=== PATIENT | female | born 1955 | race Caucasian/White ===

== ENCOUNTER → 2018-04-24 | Outpatient (CLI) | payer OTHER ==
[~2018-04-24] MED LIST: DICY20 PO; HYDACE5 PO; ONDA8 PO
[2018-04-24 10:27] LABS: BASOPHILS ABSOLUTE AUTO 0.07 K/mm3 (0.00-0.23); BASOPHILS PERCENT AUTO 1 % (0-2); EOSINOPHILS ABSOLUTE AUTO 0.07 K/mm3 (0.00-0.68); EOSINOPHILS PERCENT AUTO 1 % (0-6); Hematocrit 44.8 % (33.0-51.0); IMMATURE GRAN ABSOLUTE AUTO 0.01 K/mm3 (0.00-0.10); IMMATURE GRAN PERCENT AUTO 0 % (0-1); LYMPHOCYTES ABSOLUTE AUTO 1.01 K/mm3 (0.84-5.20); LYMPHOCYTES PERCENT AUTO 16 % (21-46); MONOCYTES ABSOLUTE AUTO 0.41 K/mm3 (0.16-1.47); MONOCYTES PERCENT AUTO 7 % (4-13); Mean Corpuscular HGB 31.8 pg (26.0-34.0); Mean Corpuscular HGB Conc 33.5 g/dL (31.5-36.5); Mean Corpuscular Volume 95 fL (80-100); Mean Platelet Volume 10.5 fL (9.1-12.4); NEUTROPHILS ABSOLUTE AUTO 4.76 K/mm3 (1.96-9.15); NEUTROPHILS PERCENT AUTO 75 % (41-73); Platelet Count 265 K/mm3 (150-400); RDW Coefficient Variation 13.8 % (11.7-14.2); RDW Standard Deviation 48.8 fL (35.1-46.3); Red Blood Cell Count 4.72 M/mm3 (3.80-5.20); White Blood Cell Count 6.33 K/mm3 (4.00-11.30)
[2018-04-24 11:07] LABS: Alanine Aminotransfer (ALT/SGP 62 U/L (12-78); Albumin, Blood 4.1 g/dL (3.4-5.0); Albumin/Globulin Ratio 1.3 (0.8-1.8); Alk Phos 370 U/L (50-136); Anion Gap 8 mmol/L (6-16); Aspartate Aminotrans (AST/SGOT 40 U/L (12-37); Bilirubin, Total 0.9 mg/dL (0.1-1.0); Blood Urea Nitrogen 14 mg/dL (8-24); Bun/Creatinine Ratio 18.6 (12.0-20.0); CO2, Blood 26 mmol/L (21-32); Calcium, Blood 10.3 mg/dL (8.5-10.1); Chloride, Blood 106 mmol/L (98-108); Creatinine, Blood 0.75 mg/dL (0.40-1.00); Globulin, Blood 3.2 g/dL (2.2-4.0); Glomerular Filtration Rate >60 (60-); Glucose, Blood 97 mg/dL (70-99); Potassium, Blood 4.2 mmol/L (3.5-5.5); Sodium, Blood 140 mmol/L (136-145); Total Protein, Blood 7.3 g/dL (6.4-8.2)
[2018-04-24 20:29] LABS: Alpha Feto Protein, Tumor Mkr 4.1 ng/mL (0.0-8.0)
[2018-04-24 20:51] LABS: Cancer Antigen 19-9 >100000.0 U/mL (2.0-37.0)
== END | disposition home or self-care (01) ==
LOC: LAB SHORT 09:45 → LAB 09:45
PROVIDERS: Physician Assistant
DX: R10.9 Unspecified abdominal pain (principal); R53.83 Other fatigue
CPT/HCPCS: 80053; 82105; 83690; 84443; 85025; 86301

== ENCOUNTER 2018-12-13 08:35 | Inpatient (IN) | payer OTHER ==
[~2018-12-13] VITALS: Ht 165.1 cm; Wt 59.0 kg
[~2018-12-13 08:35] MED LIST changes: +Omeprazole20 M1 PO; +PROBIOTIC1 EAC3 PO; +ROLAIDS PO
[2018-12-13] MEDS ORDERED: Micro-K10 MEQ PO (09:06)
[2018-12-13] MEDS ORDERED: CREON DR 24,001 EACH PO (09:06)
[2018-12-13 09:09] LABS: BASOPHILS ABSOLUTE AUTO 0.14 K/mm3 (0.00-0.23); BASOPHILS PERCENT AUTO 0 % (0-2); EOSINOPHILS ABSOLUTE AUTO 0.01 K/mm3 (0.00-0.68); EOSINOPHILS PERCENT AUTO 0 % (0-6); Hematocrit 27.2 % (33.0-51.0); Hemoglobin 9.3 g/dL (11.5-16.0); IMMATURE GRAN ABSOLUTE AUTO 1.77 K/mm3 (0.00-0.10); IMMATURE GRAN PERCENT AUTO 4 % (0-1); LYMPHOCYTES ABSOLUTE AUTO 0.63 K/mm3 (0.84-5.20); LYMPHOCYTES PERCENT AUTO 1 % (21-46); MONOCYTES ABSOLUTE AUTO 1.33 K/mm3 (0.16-1.47); MONOCYTES PERCENT AUTO 3 % (4-13); Mean Corpuscular HGB 34.6 pg (26.0-34.0); Mean Corpuscular HGB Conc 34.2 g/dL (31.5-36.5); Mean Corpuscular Volume 101 fL (80-100); Mean Platelet Volume 10.6 fL (9.1-12.4); NEUTROPHILS ABSOLUTE AUTO 42.05 K/mm3 (1.96-9.15); NEUTROPHILS PERCENT AUTO 92 % (41-73); Platelet Count 135 K/mm3 (150-400); RDW Coefficient Variation 19.3 % (11.7-14.2); RDW Standard Deviation 63.8 fL (35.1-46.3); Red Blood Cell Count 2.69 M/mm3 (3.80-5.20); White Blood Cell Count 45.93 K/mm3 (4.00-11.30)
[2018-12-13 09:28] LABS: Alanine Aminotransfer (ALT/SGP 66 U/L (12-78); Albumin, Blood 1.4 g/dL (3.4-5.0); Albumin/Globulin Ratio 0.5 (0.8-1.8); Alk Phos 678 U/L (50-136); Anion Gap 8 mmol/L (6-16); Aspartate Aminotrans (AST/SGOT 103 U/L (12-37); Bilirubin, Total 0.6 mg/dL (0.1-1.0); Blood Urea Nitrogen 61 mg/dL (8-24); Bun/Creatinine Ratio 63.5 (12.0-20.0); CO2, Blood 21 mmol/L (21-32); Calcium, Blood 6.9 mg/dL (8.5-10.1); Chloride, Blood 111 mmol/L (98-108); Creatinine, Blood 0.96 mg/dL (0.40-1.00); Globulin, Blood 2.6 g/dL (2.2-4.0); Glomerular Filtration Rate >60 (60-); Glucose, Blood 126 mg/dL (70-99); Magnesium, Blood 2.3 mg/dL (1.6-2.4); Potassium, Blood 4.3 mmol/L (3.5-5.5); Sodium, Blood 140 mmol/L (136-145)
[2018-12-13 09:47] LABS: Source, Urine Catheter
[2018-12-13 09:51] LABS: Bilirubin, Urine Neg (Neg); Blood, Urine Neg (Neg); Glucose Qualitative, Urine 1+ (Neg); Ketones, Urine Neg (Neg); Leukocyte Esterase, Urine Neg (Neg); Nitrite, Urine Neg (Neg); Protein, Urine 1+ (Neg); Specific Gravity, Urine 1.015 (1.003-1.022); Urobilinogen, Urine NORM (Normal)
[2018-12-13 10:17] LABS: Appearance, Urine Clear (Clear); Color, Urine Yellow (P-Yellow)
--- NOTE | 2018-12-13 19:07 | NUR ---
REPORT GIVEN TO AMMON KERR
--- NOTE | 2018-12-14 07:20 | NUR ---
ASSUMED CARE: PT RESTING QUIETLY IN BED AT THIS TIME. VSS, LR RUNNING AT 150/HR. DENIES DISCOMFORT OR FURTHER NEEDS AT THIS TIME
--- NOTE | 2018-12-14 07:22 | NUR ---
[id number]: ALERT, ORIENTED, DENIES PAIN X WITH REPOSIT OR LYING DIRECTLY ON SACRUM. BEDPAN USED, 750CC DK BROOKE URINE, NO BM, PASSING FLATUS. VISITING, THEN HOME. PT REPOSIT SIDE TO SIDE, SUPINE ONLY TRANSIENTLY. 2300: SBP 80-90, MAP > 60 REPORTED TO Rick WATSON, NO CHANGES MADE. POSITIVE BLOOD CULTURE REPORTED SHORTLY AFTER, STATED CORRECT ANTIBIOTICS ORDERED. PT SLEEPING AT INTERVALS. ATTEMPT TO URINATE ON BEDPAN IN AM UNSUCCESSFUL.
--- NOTE | 2018-12-14 07:30 | NUR ---
ADDENDUM: DAUGHTER MEMO AT BEDSIDE [id number], DISCUSSED PLAN FOR NO WT. BEARING SACRUM, ELEVATING BLE, NUTRITION.
[2018-12-14 08:30] LABS: Hematocrit 34.1 % (33.0-51.0); Hemoglobin 11.5 g/dL (11.5-16.0); Mean Corpuscular HGB 34.2 pg (26.0-34.0); Mean Corpuscular HGB Conc 33.7 g/dL (31.5-36.5); Mean Corpuscular Volume 102 fL (80-100); Mean Platelet Volume 11.5 fL (9.1-12.4); Platelet Count 94 K/mm3 (150-400); RDW Coefficient Variation 19.9 % (11.7-14.2); RDW Standard Deviation 67.8 fL (35.1-46.3); Red Blood Cell Count 3.36 M/mm3 (3.80-5.20)
[2018-12-14 08:49] LABS: Anion Gap 11 mmol/L (6-16); Blood Urea Nitrogen 60 mg/dL (8-24); Bun/Creatinine Ratio 64.7 (12.0-20.0); CO2, Blood 20 mmol/L (21-32); Calcium, Blood 6.8 mg/dL (8.5-10.1); Chloride, Blood 111 mmol/L (98-108); Creatinine, Blood 0.93 mg/dL (0.40-1.00); Glomerular Filtration Rate >60 (60-); Glucose, Blood 30 mg/dL (70-99); Potassium, Blood 4.6 mmol/L (3.5-5.5); Sodium, Blood 142 mmol/L (136-145)
[2018-12-14 08:57] LABS: White Blood Cell Count 50.06 K/mm3 (4.00-11.30)
--- NOTE | 2018-12-14 09:04 | NUR ---
ALERTED OF CRITICAL VALUES. DISCUSSED WITH DR LUX AND FAST FOOD CREW LEAD. RECHECKED CBG AFTER BREAKFAST AND IS IN THE 60S. PROVIDED ORANGE JUICE AND NEW ORDERS FOR CBGS PER PROTOCOL. CONTRACT MANAGEMENT SPECIALIST IN ROOM AT THIS TIME
[2018-12-14 09:06] LABS: BAND PERCENT MAN 9 % (0-8); BASOPHILS PERCENT MAN 0 % (0-2); EOSINOPHILS PERCENT MAN 0 % (0-6); LYMPHOCYTES PERCENT MAN 2 % (21-46); MONOCYTES PERCENT MAN 3 % (4-13); NEUTROPHILS ABSOLUTE MAN 47.55 K/mm3 (1.96-9.15); SEG NEUTROPHILS PERCENT MAN 86 % (41-73); TOTAL CELLS COUNTED 100
--- NOTE | 2018-12-14 09:26 | NUR ---
Echocardiogram completed.
--- NOTE | 2018-12-14 10:41 | NUR ---
DR ELIZABETH SPOKE TO PT ABOUT HER ECHO RESULT. PT DECLINED MARIAH. DR ELIZABETH STATES HE WILL SPEAK WITH DR LUX AND MAKE FURTHER RECOMMENDATIONS. VISUALIZED PT'S FEET AND PICTURES OF WOUNDS.
--- NOTE | 2018-12-14 11:26 | NUR ---
DISCUSSED PT'S CASE WITH PROFILE STITCHING MACHINE OPERATOR AND DETERMINED PCU WOULD BE THE MORE APPROPRIATE OPTION FOR PT. RELAYED DR ELIZABETH'S SUGGESTION FOR A VENOUS DOPPLER. DIETARY ATTEMPTING TO SPEAK WITH PT AT THIS TIME.
--- NOTE | 2018-12-14 14:38 | NUR ---
PT REQUESTED TO USE BEDPAN BUT DID NOT URINATE. HAS NOT URINATED SINCE THIS AM. BLADDER SCAN DONE AND REVEALED MORE THAN [address] LUX. SEE NEW ORDERS. REPORT GIVEN TO AMMON TRIPATHI.
--- NOTE | 2018-12-14 16:45 | NUR ---
MARIAH 1540 HURICANE SPRAY GIVEN 1550 PT CONSENTED 1551 TIME OUT 1553 1 MG VERSED 25 MCG FENTYAL GIVEN 1555 1ST ATTAMPT WITH THE PROBE 1557 2ND ATTEMPT WITH THE PROBE 1600 PROBE OUT NO SIGN OF VEGITATION 1608 NARCAN GIVEN 1609 RAMIZICON GIVEN 1610 PT AWAKE
--- NOTE | 2018-12-14 18:56 | NUR ---
END OF SHIFT PT HANDLED MARIAH WELL, PT HAS NO SIGNS OF BLEEDING, VSS, PT HAD A BLADDER SCAN THAT WAS GREATTER THAN 1000,RECIEVED ORDER FOR THOMPSON,
--- NOTE | 2018-12-14 19:23 | NUR ---
Patient gave Yoni Pritchard permission to participate in care on 12/14/2018.
--- NOTE | 2018-12-14 20:00 | NUR ---
ASSUMED CARE OF PT AT 1900. REPORT RECEIVED. PT PRESENTS IN BED BED. SLEEPING AT THIS TIME. PT IN NO APPARENT DISTRESS AT THIS TIME. WILL ALLOW PT TO REST SOME MORE BEFORE ASSESSMENT. VSS. WILL REVIEW CHART AND PLAN OF CARE FOR THIS PT.
--- NOTE | 2018-12-15 | NUR ---
PT RESTING IN BED. USING PILLOWS PLACED PT IN A BRIDGE TYPE POSITION TO KEEP WEIGHT OFF SACRUM. PT COOPERATIVE AND ACCEPTING OF CARE. NO COMPLAINTS OF PAIN AT THIS TIME. WILL CONTINUE TO MONITOR PT.
[2018-12-15 04:33] LABS: Hematocrit 31.6 % (33.0-51.0); Hemoglobin 10.8 g/dL (11.5-16.0); Mean Corpuscular HGB 34.1 pg (26.0-34.0); Mean Corpuscular HGB Conc 34.2 g/dL (31.5-36.5); Mean Corpuscular Volume 100 fL (80-100); Mean Platelet Volume 11.7 fL (9.1-12.4); Platelet Count 61 K/mm3 (150-400); RDW Coefficient Variation 19.7 % (11.7-14.2); RDW Standard Deviation 65.2 fL (35.1-46.3); Red Blood Cell Count 3.17 M/mm3 (3.80-5.20); White Blood Cell Count 38.12 K/mm3 (4.00-11.30)
[2018-12-15 04:50] LABS: Anion Gap 9 mmol/L (6-16); Blood Urea Nitrogen 60 mg/dL (8-24); Bun/Creatinine Ratio 61.6 (12.0-20.0); CO2, Blood 20 mmol/L (21-32); Calcium, Blood 6.6 mg/dL (8.5-10.1); Chloride, Blood 111 mmol/L (98-108); Creatinine, Blood 0.97 mg/dL (0.40-1.00); Glomerular Filtration Rate >60 (60-); Glucose, Blood 78 mg/dL (70-99); Potassium, Blood 4.4 mmol/L (3.5-5.5); Sodium, Blood 140 mmol/L (136-145)
[2018-12-15 04:57] LABS: BAND PERCENT MAN 5 % (0-8); BASOPHILS PERCENT MAN 0 % (0-2); EOSINOPHILS PERCENT MAN 0 % (0-6); LYMPHOCYTES ABSOLUTE MAN 0.38 K/mm3 (0.84-5.20); LYMPHOCYTES PERCENT MAN 1 % (21-46); MONOCYTES ABSOLUTE MAN 1.14 K/mm3 (0.16-1.47); MONOCYTES PERCENT MAN 3 % (4-13); NEUTROPHILS ABSOLUTE MAN 36.59 K/mm3 (1.96-9.15); SEG NEUTROPHILS PERCENT MAN 91 % (41-73); TOTAL CELLS COUNTED 100
--- NOTE | 2018-12-15 06:00 | NUR ---
PT REMAINS ALERT AND ORIENTED. DENIES PAIN THROUGHOUT THE NIGHT. ASSISTED PT WITH TURNS WITH KEEPING PRESSURE OFF HER SPINE AND COCCYX. PT TOLERATES TURNS WELL. IS ABLE TO ASK FOR POSITION CHANGES WHEN UNCOMFORTABLE. NO S/S ADVERSE REACTIONS TO ANTIBIOTIC THERAPY TO NOTE. LABS DRAWN FROM [facility] THIS AM WITHOUT ISSUES. WILL CONTINUE TO MONITOR PT, AND WILL REPORT OFF TO ONCOMING RN.
--- NOTE | 2018-12-15 07:30 | NUR ---
ASSUMED CARE OF PATIENT; SEE ASSESSMENT CHARTING FOR DETAILED ASSESSMENT. PATIENT SLEEPING BUT ROUSES TO SOFT, VERBAL STIMULI. DENIES DISCOMFORT; A/O X 4; MAEW; GENERALIZED WEAKNESS. CACHECTIC AND EMACIATED; DENIES GI UPSET AT PRESENT. STATES SHE LIKES FOOD BUT NOTHING TASTES GOOD. IVF OF D5 1/2NS AT 125ML/HR. THOMPSON TO GRAVITY; FAIR AMOUNT OF MED. YELLOW URINE. FEET WITH POOR CIRCULATION; DOPPLER NEEDED TO OBTAIN CERTAIN PULSES IN FEET. DRESSINGS TO COCCYX, ETC; SEE CHART PHOTOS. OVERALL STATUS SL. IMPROVED.
--- NOTE | 2018-12-15 09:50 | NUR ---
ISTRATE HERE; ORDERED SCD'S AND DC'D LOVENOX D/T PLATELETS DOWN TO 61.
--- NOTE | 2018-12-15 13:00 | NUR ---
LOTS OF VISITORS THIS AFTERNOON; REDUCED APPETITE; ATE <5% OF LUNCH; NO GI UPSET BUT POOR APPETITE AND FOOD TASTES BAD.
--- NOTE | 2018-12-15 14:37 | NUR ---
PATIENT TO TRANSFER TO PCU 2; T/C TO AMMON CASTILLO; SHE WILL CALL BACK FOR REPORT. PATIENTS' SPOUSE AT BEDSIDE.
--- NOTE | 2018-12-15 14:45 | NUR ---
REPORT TO AMMON CASTILLO.
--- NOTE | 2018-12-15 14:55 | NUR ---
TRANSFERRED TO PCU, ROOM 2, VIA BED; ACCOMPANIED BY SOFTWARE PACKAGING ENGINEER'S ADRIAN AND NOVA. MEDS, IVF'S, PERSONAL BELONGINGS, CHART WITH PATIENT; NO ACUTE C/O.
--- NOTE | 2018-12-15 18:03 | NUR ---
END OF SHIFT; PT ARRIVED TO PCU FROM ICU LATE THIS AFTERNOON. SHE IS AO X 4. PT HAS CACHETNIC APPEARANCE. OBVIOUS BRUISES AND SCABBING NOTED ON BLE. PICTURES OF FEET ARE IN CHART. TOES ARE BLACK AND SCABBING NOTED. REDNESS TO TOP OF FEET AND BOTTOM OF TOES. D5 1/2 NS AT 75ML/HR INFUSING. PT HAS DECREASED APPETITE AND REFUSES MOST OF DINNER. SHE STATES FOOD DOES NOT HAVE ANY TASTE SINCE HER CHEMO. THOMPSON CATH TO DOWN DRAIN. WILL CONTINUE TO MONITOR THIS PATIENT UNTIL REPORT AND HAND OFF TO NOC SHIFT RN.
--- NOTE | 2018-12-15 22:00 | NUR ---
ASSUMED CARE OF PATIENT AT APPROXIMATELY 1905 FROM JONATHAN Dewey RN. PATIENT ALERT AND ORIENTED X4; WEAK; CACHECTIC. PATIENT WAKES TO VERBAL STIMULUS; SLEEPS BETWEEN CARE ROUNDING AND Q2H TURNING. PATIENT DENIES PAIN, NUMBNESS, TINGLING, DIZZINESS AND NAUSEA. BILATERAL FEET DISCOLORATION; RIGHT WORSE; +3-4 EDEMA IN BLE. PATIENT INCONTINENT OF SMEAR STOOL FOR EACH TURNING; MEPILEX TO COCCYX FOR PRESSURE ULCER CHANGED TONIGHT. IVF INFUSING PER ORDER. URINARY CATHETER DRAINING YELLOW URINE. 2100 CIPRO IV DOSE HELD; SCHEDULED FOR Q12; GIVEN SHORTLY AFTER 1700; DISCUSSED WITH PHARMACIST. PATIENT CURRENTLY SLEEPING IN BED; CALL LIGHT IN REACH; BED IN LOWEST POSISTION; BED ALARM ON; WILL CONTIUE TO MONITOR AND ASSESS UNTIL END OF SHIFT.
[2018-12-16 04:13] LABS: BASOPHILS ABSOLUTE AUTO 0.05 K/mm3 (0.00-0.23); BASOPHILS PERCENT AUTO 0 % (0-2); EOSINOPHILS PERCENT AUTO 0 % (0-6); Hematocrit 32.6 % (33.0-51.0); Hemoglobin 10.9 g/dL (11.5-16.0); IMMATURE GRAN PERCENT AUTO 2 % (0-1); LYMPHOCYTES ABSOLUTE AUTO 1.15 K/mm3 (0.84-5.20); LYMPHOCYTES PERCENT AUTO 5 % (21-46); MONOCYTES ABSOLUTE AUTO 0.78 K/mm3 (0.16-1.47); MONOCYTES PERCENT AUTO 3 % (4-13); Mean Corpuscular HGB 33.2 pg (26.0-34.0); Mean Corpuscular HGB Conc 33.4 g/dL (31.5-36.5); Mean Corpuscular Volume 99 fL (80-100); NEUTROPHILS ABSOLUTE AUTO 21.05 K/mm3 (1.96-9.15); NEUTROPHILS PERCENT AUTO 90 % (41-73); RDW Coefficient Variation 19.9 % (11.7-14.2); RDW Standard Deviation 66.7 fL (35.1-46.3); Red Blood Cell Count 3.28 M/mm3 (3.80-5.20); White Blood Cell Count 23.43 K/mm3 (4.00-11.30)
[2018-12-16 04:33] LABS: Albumin, Blood 1.2 g/dL (3.4-5.0); Anion Gap 9 mmol/L (6-16); Blood Urea Nitrogen 57 mg/dL (8-24); Bun/Creatinine Ratio 67.5 (12.0-20.0); CO2, Blood 19 mmol/L (21-32); Chloride, Blood 110 mmol/L (98-108); Creatinine, Blood 0.85 mg/dL (0.40-1.00); Glomerular Filtration Rate >60 (60-); Glucose, Blood 86 mg/dL (70-99); Phosphorus, Blood 3.2 mg/dL (2.5-4.9); Potassium, Blood 4.3 mmol/L (3.5-5.5); Sodium, Blood 138 mmol/L (136-145)
[2018-12-16 04:46] LABS: Mean Platelet Volume 13.4 fL (9.1-12.4); Platelet Count 41 K/mm3 (150-400)
[2018-12-16 05:00] LABS: Calcium, Blood 5.6 mg/dL (8.5-10.1)
--- NOTE | 2018-12-16 06:41 | NUR ---
SPOKE WITH DR. SMALLWOOD IN ICU REGARDING CRITICALLY LOW PLATELET COUNT AND CRITICALLY LOW CALCIUM; ORDERS RECIEVED. PATIENT UNCOMFORTABLE; REPOSISTIONED FREQUENTLY. VSS. WILL CONTINUE TO MONITOR AND ASSESS UNTIL END OF SHIFT.
--- NOTE | 2018-12-16 07:40 | NUR ---
PCU DAYSHIFT ASSUMED CARE OF PT APPROX. 0700. PT A&OX4. ASSESSMENT COMPLETED. VITAL SIGNS STABLE. HEART RHYTHM SINUS [place] WITH HEART RATE 46-48 AT THIS TIME. PT HAS SCATTERED BRUISING AND ABRASIONS DUE TO FRAGILE SKIN. EDEMA BLE. PILLOW PLACED UNDER FEET. THOMPSON IN PLACE, INTACT, DRAINING AND PATENT. BED IN LOW POSTION, BED ALARM ON, CALL LIGHT N REACH AND PT DENIES ANY NEEDS AT THIS TIME. WILL CONTINUE TO MONITOR.
--- NOTE | 2018-12-16 16:11 | NUR ---
NOTE SPOKE TO VICE PRESIDENT OF FINANCE ABOUT PT AND ALLERGY. PT REPORTS THIS MORNING HAVING TROUBLE FINDING ITEMS ON MENU THAT SHE IS ABLE TO EAT. PT HAS LOW APPETITE AND IN NEED OF NUTRITION. VICE PRESIDENT OF FINANCE WAS IN TO SEE PT TO DISUCSS THIS AND COME UP WITH A PLAN.
--- NOTE | 2018-12-16 19:18 | NUR ---
SHIFT SUMMARY PT PLEASANT, COOPERATIVE AND USES CALL LIGHT APPROPRIATELY. PT REMAINS A&O X4. VITAL SIGNS REMAIN STABLE. ASSESSMENT FINDINGS FROM MORNING REMAIN UNCHANGED. PILLOW REMAINS UNDER FEET TO HELP DECREASE EDEMA. PT REPORTS HAVING SLIGHTLY INCREASED APPETITE THIS EVENING AND WAS ABLE TO CONSUME SOME OF HER HOME PROTEIN SHAKE POWDER. THOMPSON REMAINS IN PLACE, PATENT AND DRAINING. FAMILY AT BEDSIDE INTERMITTENTLY. BED IN LOW POSITION, BED ALARM ON, CALL LIGHT IN REACH AND PT DENIES ANY NEEDS AT THIS TIME. WILL CONTINUE TO MONITOR UNTIL HANDOFF TO NIGHTSHIFT RN.
--- NOTE | 2018-12-16 22:23 | NUR ---
ASSUMED CARE OF PATIENT AT APPROXIMATELY 1905 FROM RUBÉN Osborn RN. PATIENT ALERT AND ORIENTED X4; WEAK; CACHECTIC. PATIENT WAKES TO VERBAL STIMULUS; SLEEPS BETWEEN CARE ROUNDING AND Q2H TURNING. PATIENT DENIES PAIN, NUMBNESS, TINGLING, DIZZINESS AND NAUSEA. PATIENT COMPLAINED OF BED BEING UNCOMFORTABLE; FOAM APPLIED TO MATTRESS. BILATERAL FEET DISCOLORATION; RIGHT WORSE; +3-4 EDEMA IN BLE. PATIENT INCONTINENT OF SMEAR TO SMALL STOOL FOR EACH TURNING; MEPILEX TO COCCYX FOR PRESSURE ULCER. IVF INFUSING PER ORDER. URINARY CATHETER DRAINING YELLOW URINE. PATIENT'S WAS BEDSIDE AT SHIFT CHANGE. PATIENT CURRENTLY SLEEPING IN BED; CALL LIGHT IN REACH; BED IN LOWEST POSISTION; BED ALARM ON; WILL CONTIUE TO MONITOR AND ASSESS UNTIL END OF SHIFT.
--- NOTE | 2018-12-16 22:26 | NUR ---
ASSUMED CARE OF PATIENT AT APPROXIMATELY 1905 FROM RUBÉN Osborn RN. PATIENT ALERT AND ORIENTED X4; WEAK; CACHECTIC. PATIENT WAKES TO VERBAL STIMULUS; SLEEPS BETWEEN CARE ROUNDING AND Q2H TURNING. PATIENT DENIES PAIN, NUMBNESS, TINGLING, DIZZINESS AND NAUSEA. PATIENT COMPLAINED OF BED BEING UNCOMFORTABLE; FOAM APPLIED TO MATTRESS. BILATERAL FEET DISCOLORATION; RIGHT WORSE; +3-4 EDEMA IN BLE. PATIENT INCONTINENT OF SMEAR TO SMALL STOOL FOR EACH TURNING; MEPILEX TO COCCYX FOR PRESSURE ULCER. IVF INFUSING PER ORDER. URINARY CATHETER DRAINING YELLOW URINE. PATIENT'S WAS BEDSIDE AT SHIFT CHANGE. PATIENT'S TELE D/C'D TODAY; OXYGEN SATURATION ABOVE 90% ON ROOM AIR. PATIENT CURRENTLY SLEEPING IN BED; CALL LIGHT IN REACH; BED IN LOWEST POSISTION; BED ALARM ON; WILL CONTIUE TO MONITOR AND ASSESS UNTIL END OF SHIFT.
[2018-12-17 04:44] LABS: BASOPHILS ABSOLUTE AUTO 0.05 K/mm3 (0.00-0.23); BASOPHILS PERCENT AUTO 0 % (0-2); EOSINOPHILS PERCENT AUTO 0 % (0-6); Hematocrit 29.8 % (33.0-51.0); Hemoglobin 10.1 g/dL (11.5-16.0); IMMATURE GRAN ABSOLUTE AUTO 0.19 K/mm3 (0.00-0.10); IMMATURE GRAN PERCENT AUTO 1 % (0-1); LYMPHOCYTES PERCENT AUTO 7 % (21-46); MONOCYTES PERCENT AUTO 5 % (4-13); Mean Corpuscular HGB 33.4 pg (26.0-34.0); Mean Corpuscular HGB Conc 33.9 g/dL (31.5-36.5); Mean Corpuscular Volume 99 fL (80-100); NEUTROPHILS ABSOLUTE AUTO 14.83 K/mm3 (1.96-9.15); NEUTROPHILS PERCENT AUTO 87 % (41-73); RDW Coefficient Variation 19.7 % (11.7-14.2); RDW Standard Deviation 64.8 fL (35.1-46.3); Red Blood Cell Count 3.02 M/mm3 (3.80-5.20); White Blood Cell Count 16.97 K/mm3 (4.00-11.30)
[2018-12-17 04:52] LABS: Alanine Aminotransfer (ALT/SGP 51 U/L (12-78); Albumin, Blood 1.8 g/dL (3.4-5.0); Albumin/Globulin Ratio 0.8 (0.8-1.8); Alk Phos 630 U/L (50-136); Anion Gap 8 mmol/L (6-16); Aspartate Aminotrans (AST/SGOT 36 U/L (12-37); Bilirubin, Total 0.9 mg/dL (0.1-1.0); Blood Urea Nitrogen 52 mg/dL (8-24); Bun/Creatinine Ratio 61.3 (12.0-20.0); CO2, Blood 21 mmol/L (21-32); Calcium, Blood 6.8 mg/dL (8.5-10.1); Chloride, Blood 110 mmol/L (98-108); Creatinine, Blood 0.85 mg/dL (0.40-1.00); Globulin, Blood 2.4 g/dL (2.2-4.0); Glomerular Filtration Rate >60 (60-); Glucose, Blood 101 mg/dL (70-99); Sodium, Blood 139 mmol/L (136-145); Total Protein, Blood 4.2 g/dL (6.4-8.2)
[2018-12-17 05:17] LABS: Mean Platelet Volume 13.3 fL (9.1-12.4); Platelet Count 30 K/mm3 (150-400)
--- NOTE | 2018-12-17 06:37 | NUR ---
NO ACUTE CHANGES TO REPORT. PATIENT SLEPT ABOUT ELEVEN HOURS LAST NIGHT. REPORTS FOAM APPLIED TO MATTRESS MORE COMFORTABLE. VSS. WILL CONTINUE TO MONITOR AND ASSESS UNTIL END OF SHIFT.
--- NOTE | 2018-12-17 12:40 | NUR ---
BEGINNING OF SHIFT - TRANSFER TO MEDICAL FLOOR Assumed care of pt at 0700. Bedside report recieved from Josiane VERDE. Pt on room air. No tele in place. Pt cachexic in appearance. Pt did not eat breakfast but this RN made a protein shake that she drinks at home. Pt bedrest. Orders placed for medical floor status. Pt transferred to room 324 at 1213. Belongings, chart, and medications transferred to patient. Telephone report given to Pedrito VERDE prior to pt arrival.
--- NOTE | 2018-12-17 16:06 | NUR ---
PT ARRIVED TO THE MEDICAL FLOOR FROM THE PCU AROUND 1300, A/OX3, PT WAS ORIENTED TO THE ROOM LAYOUT AND CALL SYSTEM, REPORT WAS TAKEN FROM EDISON VERDE FROM THE PCU, CALL LIGHT IN REACH
--- NOTE | 2018-12-17 20:03 | NUR ---
PT A/OX3, PLEASANT AND COOPERATIVE THE PT IS BED REST TURN Q2 HRS, THE PT APPEARS TO BE BREATHING EASILY ON RA AT THIS TIME, THE PT HAS LITTLE APPETITE ONLY HAD A SMALL PERCENT OF HER DINNER, PT DENIED ANY PAIN AT THIS TIME, CALL LIGHT IN REACH
--- NOTE | 2018-12-18 04:45 | NUR ---
SUMMARY: A/OX3, PLEASANT AND COOPERATIVE W/CARE. SHE REMAINS ON BEDREST W/TURN SCHEDULE MAINTAINED. SHE APPEARS CACHETIC R/T PANCREATIC CANCER AND HAS SCANT APPETITE. SIGNIFICANT DEPENDENT EDEMA IN HIPS AND ABDO NOTED TO EXTEND GROSSLY INTO FEET. SHE APPEARS PALE AND FACE HAS DUSKY APPEARANCE. THOMPSON IS PATENT AND DRAINING. MEPILEX REMAINS C/D/I TO PRESSURE ULCER ON COCCYX AND VARIOUS SCABS AND SCRAPES NOTED TO BUE'S. BILAT FEET HAVE DISCOLORATION, ARE COOL AND HAVE SLOW CAP REFILL. TOES TO L.FOOT ARE PURPLE BUT (-) FOR DVT. ONCOLOGY AND ID CONSULTING. NO ACUTE CHANGES, VSS/AFEBRILE. WILL MONITOR AND REPORT TO DAY RN.
[2018-12-18 05:05] LABS: BASOPHILS ABSOLUTE AUTO 0.02 K/mm3 (0.00-0.23); BASOPHILS PERCENT AUTO 0 % (0-2); EOSINOPHILS PERCENT AUTO 0 % (0-6); Hematocrit 28.9 % (33.0-51.0); Hemoglobin 9.7 g/dL (11.5-16.0); IMMATURE GRAN ABSOLUTE AUTO 0.15 K/mm3 (0.00-0.10); IMMATURE GRAN PERCENT AUTO 2 % (0-1); LYMPHOCYTES ABSOLUTE AUTO 0.83 K/mm3 (0.84-5.20); LYMPHOCYTES PERCENT AUTO 9 % (21-46); MONOCYTES ABSOLUTE AUTO 0.49 K/mm3 (0.16-1.47); MONOCYTES PERCENT AUTO 5 % (4-13); Mean Corpuscular HGB 33.6 pg (26.0-34.0); Mean Corpuscular HGB Conc 33.6 g/dL (31.5-36.5); Mean Corpuscular Volume 100 fL (80-100); NEUTROPHILS ABSOLUTE AUTO 7.59 K/mm3 (1.96-9.15); NEUTROPHILS PERCENT AUTO 84 % (41-73); RDW Coefficient Variation 19.2 % (11.7-14.2); RDW Standard Deviation 65.9 fL (35.1-46.3); Red Blood Cell Count 2.89 M/mm3 (3.80-5.20); White Blood Cell Count 9.08 K/mm3 (4.00-11.30)
[2018-12-18 05:21] LABS: Alanine Aminotransfer (ALT/SGP 39 U/L (12-78); Albumin, Blood 2.7 g/dL (3.4-5.0); Albumin/Globulin Ratio 1.4 (0.8-1.8); Alk Phos 553 U/L (50-136); Anion Gap 8 mmol/L (6-16); Aspartate Aminotrans (AST/SGOT 27 U/L (12-37); Blood Urea Nitrogen 47 mg/dL (8-24); Bun/Creatinine Ratio 58.2 (12.0-20.0); CO2, Blood 22 mmol/L (21-32); Calcium, Blood 6.9 mg/dL (8.5-10.1); Chloride, Blood 108 mmol/L (98-108); Creatinine, Blood 0.81 mg/dL (0.40-1.00); Globulin, Blood 1.9 g/dL (2.2-4.0); Glomerular Filtration Rate >60 (60-); Glucose, Blood 93 mg/dL (70-99); Magnesium, Blood 2.1 mg/dL (1.6-2.4); Potassium, Blood 3.6 mmol/L (3.5-5.5); Sodium, Blood 138 mmol/L (136-145); Total Protein, Blood 4.6 g/dL (6.4-8.2)
[2018-12-18 05:30] LABS: Mean Platelet Volume 13.2 fL (9.1-12.4)
[2018-12-18 05:31] LABS: Platelet Count 23 K/mm3 (150-400)
--- NOTE | 2018-12-18 05:41 | NUR ---
CRITICAL PLATELETS AGAIN THIS AM, NOW 23 BUT PT HAS KNOWN PANCREATIC CANCER. DISCUSSED W/STRUCTURES TECHNICIAN, JACQUI ALLAN AND ADVISED TO LET DAY STAFF KNOW BUT NO NEED TO NOTIFY MD AT THIS TIME.
--- NOTE | 2018-12-18 11:28 | NUR ---
INITIAL PAL CARE VISIT MADE TO PT AND AFTER REVIEW OF EMR AND CASE CONFERENCE WITH PT'S RN. I introduced myself and initiated a conversation about advanced care planning, code status and pt's thoughts wishes regarding that. Introduced AD and POLST forms and offered to return to discuss further or assist with completion if pt would like to. Currently pt is a full code and she and her express she would not want ongoing assisted life support. They will discuss further and decide about whether she wants CPR or intubation at this time. Pt and given blank POLST and AD forms and I reviewed both in detail. Dr updated on my visit. Dr/RN has requested that Dr Quick return to discuss options and prognosis. Pt is cachectic and frail appearing in bed. She is skeletal. She is alert, oriented and profoundly fatigued. She report low level of pain and nausea currently. She states the chemo destroyed taste & she is having difficulty swallowing. I brought her two flavors of jello after s/s assessment and discussed visit with RN. RN will page me if pt would like me to return today. Otherwise I will see her again tomorrow.
--- NOTE | 2018-12-18 16:43 | NUR ---
SHIFT SUMMARY. A&OX4, BEDREST AT THIS TIME. PT IS AWARE OF LIMITATIONS AND CALLS APPROPRIATLY. PT DENIES PAIN, SOB, N/V. FAIR MEAL INTAKE. PALLIATIVE CARE IN TO DISCUSS CODE STATUS WITH PT AND THIS MORNING, PT IS CURENTLY FULL CODE. DR. POZO OFFICE CALLED FOR ANOTHER CONSULT. AT BEDSIDE THROUGHOUT MOST OF SHIFT.
--- NOTE | 2018-12-19 03:24 | NUR ---
SUMMARY: A/OX4, PLEASANT AND COOPERATIVE W/CARE. PT DENIES PAIN AND ALL OTHER COMPLAINTS. CA 19-9 ANTIGEN RESULT ELEVATED, WILL ENSURE DAY STAFF ARE AWARE. PT CONT'S CACHETIC, WEAK ON BEDREST W/TURN SCHEDULE MAINTAINED. MEPILEX TO COCCYX ULCER REMAINS C/D/I. PITTING AND DEPENDENT EDEMA PERSISTS FROM ABDO TO FEET AND VARIOUS SCABS/SCRAPES NOTED TO BUE'S. FEET ARE DISCOLORED BUT (-) FOR DVT. THOMPSON PATENT/DRAINING. NO ACUTE CHANGES, VSS/AFEBRILE. PT REFUSED COLACE. WILL MONITOR AND REPORT TO DAY RN.
[2018-12-19 06:17] LABS: BASOPHILS ABSOLUTE AUTO 0.01 K/mm3 (0.00-0.23); BASOPHILS PERCENT AUTO 0 % (0-2); EOSINOPHILS PERCENT AUTO 0 % (0-6); Hematocrit 27.2 % (33.0-51.0); Hemoglobin 9.3 g/dL (11.5-16.0); IMMATURE GRAN PERCENT AUTO 2 % (0-1); LYMPHOCYTES ABSOLUTE AUTO 0.66 K/mm3 (0.84-5.20); LYMPHOCYTES PERCENT AUTO 10 % (21-46); MONOCYTES PERCENT AUTO 9 % (4-13); Mean Corpuscular HGB 33.6 pg (26.0-34.0); Mean Corpuscular HGB Conc 34.2 g/dL (31.5-36.5); Mean Corpuscular Volume 98 fL (80-100); Mean Platelet Volume 12.9 fL (9.1-12.4); NEUTROPHILS ABSOLUTE AUTO 5.23 K/mm3 (1.96-9.15); NEUTROPHILS PERCENT AUTO 79 % (41-73); RDW Coefficient Variation 18.8 % (11.7-14.2); RDW Standard Deviation 62.9 fL (35.1-46.3); Red Blood Cell Count 2.77 M/mm3 (3.80-5.20)
[2018-12-19 06:26] LABS: Platelet Count 22 K/mm3 (150-400)
[2018-12-19 06:29] LABS: Albumin, Blood 2.9 g/dL (3.4-5.0); Anion Gap 7 mmol/L (6-16); Blood Urea Nitrogen 37 mg/dL (8-24); Bun/Creatinine Ratio 58.4 (12.0-20.0); CO2, Blood 24 mmol/L (21-32); Chloride, Blood 106 mmol/L (98-108); Creatinine, Blood 0.63 mg/dL (0.40-1.00); Glomerular Filtration Rate >60 (60-); Glucose, Blood 83 mg/dL (70-99); Phosphorus, Blood 2.7 mg/dL (2.5-4.9); Potassium, Blood 3.1 mmol/L (3.5-5.5); Sodium, Blood 137 mmol/L (136-145)
--- NOTE | 2018-12-19 09:36 | NUR ---
Pt gave consent to this student nurse to assist care.
--- NOTE | 2018-12-19 12:18 | NUR ---
Palliative Care follow up visit. EMR and Dr Quick' note reviewed prior to visit. Pt with at the bedside. She has peanut butter and large container of cashews on table in front of her that her brought her. Pt reports some difficulty swallowing and nurse confirms this. She states she is not having any nausea or pain. She appears somewhat withdrawn but not anxious. She has a agrcia catheter draining clear yellow urine. Her color is dusky. She is profoundly fatigued and skeletal appearing. After a brief conversation about favorite foods, symptoms and I asked if Rachelle or her , Zachary had any feelings or questions about our conversation re: code status, AD or POLST forms from yesterday. Pt says, they have not gotten around to discussing this yet and have not looked further at the forms we reviewed yesterday. I asked what her thoughts were RE: Dr Quick' input. I gently broached the subject of hospice at home vs. proceeding with d/c to SNF for rehab. Pt expressed, "I said from the beginning, that I didn't want to know about all of this". I asked her if she could tell me what was most important to her. She stated she did not want to in a facility. Her states she is too weak to return home and that they do not have help. I explained what the goals and services included with HH and Hospice were. They have experience with [facility] and if they were to choose homegoing with or Hospice they expressed a wish to remain with [facility]. They have completed a financial disclosure and applied for assist with their bill thru [facility] already. talked about pt "needing to get back on her feet". They have chosen at this time, in the interim of further advanced care decision making, to proceed with the plan for a transfer to a SNF for rehab. This was relayed by message to Jakub Corado Mgr. They were receptive to having a brochure on [facility] to further consider and also the booklet, "Hard Choices for [place] People" to review in particular the section on CPR and intubation. They have not expressed a desire to change pt's code status at this time. I gently educated on the possibility that pt would not improve with rehab or be able to "get back on her feet". was teaful at times. Both were receptive to continued conversation and problem solving. states they already have a hospital bed at home and pt states this has been more comfortable for her. Pt asked about symptom management at home and I assured her that her comfort is always a top priority and the primary priority for Hospice services. and pt both relate that she has never wanted to be the center of attention or to "cause any trouble to anyone", so her illness has made her feel she is in both of these unwanted positions. I again offered to return with any further questions or desire to discuss advanced care planning today or at the very latest I will stop by again tomorrow. Report on my visit given to pt's RN. Pt's physical s/s appear well managed and this time. Will request narrow fabric loom fixer visit also.
--- NOTE | 2018-12-19 13:43 | NUR ---
PT REFUSED CALCIUM WITH VITAMIN D TABLET AND PROBIOTIC CAPSULE SHE DID NOT THINK THAT SHE WOULD TOLERATE SWALLOWING DUE TO THE SIZE OF THE MEDICATION. ATTEMPTING TO CRUSH CALCIUM TABLET WITH APPLESAUCE, PT DID NOT TOLERATE.
--- NOTE | 2018-12-19 15:30 | NUR ---
PT HAS ONLY RECIEVED APROXIMATLY 30MEQ OF THE 60MEQ OF IV KCL THAT WHAT ORDERED THIS MORNING. PT CONTINUES WITH THOMPSON CATHETER THAT WAS PLACED IN ICU FOR RETENTION, PT REQUESTING TO NOT HAVE THOMPSON D/C'D TILL AFTER ARRIVING TO SNF. MEDIPORT ACCESSED AT TIME OF ADMISSION. SPOKE WITH DR. HOLGUIN ABOUT THE ABOVE IN REGARDS TO PT DISCHARGING TO SNF FOR IV ANTIBIOTICS THIS AFTERNOON. DR. HOLGUIN ORDERED POTASSIUM ELIXER 20MEQ NOW, KEEP MEDIPORT ACCESSED, AND PT MAY KEEP THOMPSON CATHETER INSERTED BUT NOTIFY NURSING STAFF AT SNF TO D/C THOMPSON WAS AT SNF. PT AND SPOUSE AWARE OF PLAN OF CARE. WILL CHANGE MEDIPORT DRESSING PRIOR TO D/C.
--- NOTE | 2018-12-19 18:31 | NUR ---
[address] [facility]IA [facility] TRANSPORT. PRIOR TO D/C MEDIPORT DRESSING CHANGED AND HEPARIN LOCKED, WOUNDS PHOTOGRAPHED AND DOCUMENTED, PT REFUSED BED BATH. PT HAD MEDIUM FORMED BM PRIOR TO D/C. 1824 REPORT GIVEN TO NR RN.
[2018-12-19] MEDS ORDERED: CREON DR 12,001 EACH PO (19:18)
[2018-12-19] MEDS ORDERED: BISA10S PR (19:19)
[2018-12-19] MEDS ORDERED: ACET325 PO (19:19)
[2018-12-19] MEDS ORDERED: TUMS300 MG PO (19:20)
[2018-12-19] MEDS ORDERED: Oyster Shell C500 MG PO (19:20)
[2018-12-19] MEDS ORDERED: Refresh Eye Dr1 EACH BOTHEYES (19:22)
[2018-12-19] MEDS ORDERED: Ciprofloxa400 MG/200 IV (19:28)
[2018-12-19] MEDS ORDERED: DOCU100 PO (19:36)
[2018-12-19] MEDS ORDERED: FENT50TP TOP (19:37)
[2018-12-19] MEDS ORDERED: Acidophilus1 EAC1 PO (19:38)
[2018-12-19] MEDS ORDERED: ONDA4ODT MM (19:39)
[2018-12-19] MEDS ORDERED: Sodium Chlorid250 M1 IV (19:40)
[2018-12-19] MEDS ORDERED: OXYC5 PO (19:41)
== END 2018-12-19 18:20 | DRG 871 ==
LOC: ER 08:35 → ICUE 11:07 → ERHOLD 11:07 → ICUE 13:51 → PCU 12-15 15:00 → MEDS 12-17 12:13
PROVIDERS: Emergency Medicine; Family Medicine; ADMIT Internal Medicine
DX: A41.50 Gram-negative sepsis, unspecified (principal); R65.21 Severe sepsis with septic shock; I33.0 Acute and subacute infective endocarditis; J90 Pleural effusion, not elsewhere classified; R64 Cachexia; C78.6 Secondary malignant neoplasm of retroperitoneum and peritoneum; C78.4 Secondary malignant neoplasm of small intestine; C78.7 Secondary malignant neoplasm of liver and intrahepatic bile duct; R18.8 Other ascites; C25.9 Malignant neoplasm of pancreas, unspecified; Z68.1 Body mass index [BMI] 19.9 or less, adult; I95.9 Hypotension, unspecified; D69.6 Thrombocytopenia, unspecified; D69.2 Other nonthrombocytopenic purpura; E83.51 Hypocalcemia; E88.09 Other disorders of plasma-protein metabolism, not elsewhere classified; E16.1 Other hypoglycemia; K86.81 Exocrine pancreatic insufficiency; R58 Hemorrhage, not elsewhere classified; S90.811A Abrasion, right foot, initial encounter; R53.1 Weakness; I73.9 Peripheral vascular disease, unspecified; R06.00 Dyspnea, unspecified; R62.7 Adult failure to thrive; W19.XXXA Unspecified fall, initial encounter; Z79.899 Other long term (current) drug therapy; Z95.828 Presence of other vascular implants and grafts; Z87.891 Personal history of nicotine dependence; Z78.0 Asymptomatic menopausal state; Z92.21 Personal history of antineoplastic chemotherapy; Z88.8 Allergy status to other drugs, medicaments and biological substances; Z91.011 Allergy to milk products; Z91.018 Allergy to other foods
CPT/HCPCS: 36415; 36416; 71045; 74177; 80048; 80053; 80069; 82947; 83605; 83690; 83735; 84484; 85025; 85651; 86301; 87040; 87077; 87186; 93005; 93010; 93306; 93312; 93325; 93922; 93970; 96365; 96366; 99285-25; J0610; J0744; J1642; J1650; J1940; J1956; J2250; J2310; J2543; J3010; J3370; J3480; J7042; J7120; P9046; Q9967

== ENCOUNTER 2018-12-29 09:06 | Observation (INO) | payer OTHER ==
[~2018-12-29] VITALS: Ht 165.1 cm; Wt 52.2 kg
[~2018-12-29 09:06] MED LIST changes: +ACET325 PO; +Acidophilus1 EAC1 PO; +BISA10S PR; +CREON DR 12,001 EACH PO; +CREON DR 24,001 EACH PO; +Ciprofloxa400 MG/200 IV; +DOCU100 PO; +FENT50TP TOP; +Micro-K10 MEQ PO; +ONDA4ODT MM; +OXYC5 PO; +Oyster Shell C500 MG PO; +Refresh Eye Dr1 EACH BOTHEYES; +Sodium Chlorid250 M1 IV; +TUMS300 MG PO
[2018-12-29 09:34] LABS: BASOPHILS ABSOLUTE AUTO 0.06 K/mm3 (0.00-0.23); BASOPHILS PERCENT AUTO 0 % (0-2); EOSINOPHILS ABSOLUTE AUTO 0.02 K/mm3 (0.00-0.68); EOSINOPHILS PERCENT AUTO 0 % (0-6); Hemoglobin 11.4 g/dL (11.5-16.0); IMMATURE GRAN ABSOLUTE AUTO 0.63 K/mm3 (0.00-0.10); IMMATURE GRAN PERCENT AUTO 3 % (0-1); LYMPHOCYTES ABSOLUTE AUTO 2.53 K/mm3 (0.84-5.20); LYMPHOCYTES PERCENT AUTO 12 % (21-46); MONOCYTES ABSOLUTE AUTO 0.45 K/mm3 (0.16-1.47); MONOCYTES PERCENT AUTO 2 % (4-13); Mean Corpuscular HGB Conc 34.5 g/dL (31.5-36.5); Mean Corpuscular Volume 96 fL (80-100); Mean Platelet Volume 11.2 fL (9.1-12.4); NEUTROPHILS ABSOLUTE AUTO 17.87 K/mm3 (1.96-9.15); NEUTROPHILS PERCENT AUTO 83 % (41-73); Platelet Count 55 K/mm3 (150-400); RDW Coefficient Variation 19.9 % (11.7-14.2); Red Blood Cell Count 3.45 M/mm3 (3.80-5.20); White Blood Cell Count 21.56 K/mm3 (4.00-11.30)
[2018-12-29 10:13] LABS: Alanine Aminotransfer (ALT/SGP 199 U/L (12-78); Albumin, Blood 2.3 g/dL (3.4-5.0); Alk Phos 1085 U/L (50-136); Anion Gap 7 mmol/L (6-16); Aspartate Aminotrans (AST/SGOT 232 U/L (12-37); Bilirubin, Total 1.6 mg/dL (0.1-1.0); Blood Urea Nitrogen 82 mg/dL (8-24); Bun/Creatinine Ratio 104.9 (12.0-20.0); CO2, Blood 24 mmol/L (21-32); Calcium, Blood 7.2 mg/dL (8.5-10.1); Chloride, Blood 107 mmol/L (98-108); Creatinine, Blood 0.78 mg/dL (0.40-1.00); Globulin, Blood 2.4 g/dL (2.2-4.0); Glomerular Filtration Rate >60 (60-); Glucose, Blood 41 mg/dL (70-99); Sodium, Blood 138 mmol/L (136-145); Total Protein, Blood 4.7 g/dL (6.4-8.2)
--- NOTE | 2018-12-29 10:31 | NUR ---
pt in [place], with hypoventilation low sats and hypoglycemia. pt in. physician and palliatve review with on prognosis and care needs. pt stuggling wanting to say it is ok to stop and be comfortable. espresses they made her DNR. They have not wanted to face discussion and make decisions. He is tearfull and agonizing. review they are not giving up and her body is declining from the disease and respecting her needs holistically. will have chaplian see . he is having antipcipatory grief. had a blunt dsicussion with him on making decisions and avoidance. Hope is we can give relief to her suffering and have a plan and support his process.
--- NOTE | 2018-12-29 13:32 | NUR ---
Spiritual care visit conducted. Patient was nonverbal so I provided a calming presence and prayer. Not noticable change in patient's condition.
[2018-12-29] MEDS ORDERED: ROXICODONE5 MG PO (14:03)
[2018-12-29] MEDS ORDERED: ACET325S PR (14:21)
[2018-12-29] MEDS ORDERED: BISA10S PR (14:22)
[2018-12-29] MEDS ORDERED: Fentanyl1 EAC2 TD (14:23)
[2018-12-29] MEDS ORDERED: Fleet Enema132 ML PR (14:24)
--- NOTE | 2018-12-29 14:24 | NUR ---
Spiritual care visit conducted. Patient was lying in bed and nonverbal when I entered the room. Patient's and daughter are bedside. I introduced myself and shared patient's medical history, the family history and some of the comlications of contacting his son in [place]. I listened empathically, provided spiritual direction and prayer. The family present responded well and expressed gratitude form my time and care.
[2018-12-29] MEDS ORDERED: Milk Of Ma400 MG/5 M PO (14:25)
[2018-12-29] MEDS ORDERED: Megace Es625 MG/5 M PO (14:29)
[2018-12-29] MEDS ORDERED: ASCO500 PO (14:30)
[2018-12-29] MEDS ORDERED: ZINC220 PO (14:30)
--- NOTE | 2018-12-29 15:53 | NUR ---
PT ADMITTED THROUGH THE ED. SHE HAS MULTIPLE PRESSURE SORES T/O HER BODY, ELBOWS, COCCYX, FEET AND FORE ARMS WRAPPED IN CLEAN DESMOND BANDAGES, FOR PT COMFORT THESE WERE NOT OPENED. PT WAS POSITIONED FLOATD ON PILLOWS AND MEDICATED WITH 5MG ROXANOL. PT ON 15L O2 VIA NON-REBREATHER. PT COOL TO TOUCH, SKIN FRAGILE SMALL TEARS NOTED T/O.
--- NOTE | 2018-12-29 15:57 | NUR ---
PT MEDICATED WITH ANOTHER 5MG ROXANOL. SHE STATED HER PAIN WAS 8/10 AND REQUESTED PAIN MEDICATION. PT FAMILY STATES THIS IS UNUSUAL FOR HER SHE TYPICALLY DENIES PAIN. PT VERY FRAGILE AND SMALL, USING SMALLEST POSSIBLE DOSE FOR PAIN MANAGEMENT. PT LUNG SOUDS ARE RALES IN ALL CARMONA. WILL REPOSITION PT SHORTLY.
--- NOTE | 2018-12-29 17:14 | NUR ---
SPOKE TO THE PT ABOUT PAIN AND SHE STATED SHE SHOULD PROBABLY HAVE SOME MEDICINE NOW WHEN ASKED FOR A NUMBER FOR HER PAIN 1-10 PT STATED ITS PROBABLY A 10.
--- NOTE | 2018-12-29 17:23 | NUR ---
review of care with daughter and brought comfort cart and quilts. supportive visit. Daughter distraught because mother would not discuss care and told her she would be ok. Therputic conversation of care.
--- NOTE | 2018-12-29 18:01 | NUR ---
family left for ahwile pt tolerating opoid care and able to communicate with nursing
--- NOTE | 2018-12-29 19:29 | NUR ---
COMFORT CARE NOTE ON COMFORT CARE ASSESSMENT PT HAD TOLD STAFF HER PAIN WAS "PROBABLY A 10/10" AND STATED SHE SHOULD PROBABLY TAKE SOME OF THE PAIN MEDICATION. SHE WAS MEDICATED WITH THE 5MG ROXINOL.
--- NOTE | 2018-12-29 19:32 | NUR ---
FINAL NOTE 1800- PT HAS NO VISIBLE OR AUDIBLE RESPIRATIONS, NO PALPABLE OR AUDIBLE PULSE. TOD 1800. CALLED PALLIATIVE CARE RN PASTOR, SHE NOTIFIED FAMILY, NOTIFIED CHIEF LIBRARIAN BRANCH OR DEPARTMENT AT [address] WOLF AT 1810. PT CLEANED AND POSITIONED BY LAINEY MEDLEY DEACCESSED BY RN. [facility] PASSED ON TO CHIEF LIBRARIAN BRANCH OR DEPARTMENT PT READY FOR TRANSPORT WHEN FAMILY IS READY.
--- NOTE | 2018-12-29 22:21 | NUR ---
PATIENT DISCHARGE THE PATIENT WAS TRANSFER TO THE MORTUARY AT 2030 VIA [facility].
== END 2018-12-29 18:00 ==
LOC: ER 09:06 → MEDS 09:07
PROVIDERS: Emergency Medicine; ADMIT Internal Medicine
DX: J96.01 Acute respiratory failure with hypoxia (principal); C25.9 Malignant neoplasm of pancreas, unspecified; I33.9 Acute and subacute endocarditis, unspecified; J90 Pleural effusion, not elsewhere classified; D69.6 Thrombocytopenia, unspecified; Z87.891 Personal history of nicotine dependence; Z91.011 Allergy to milk products; Z88.8 Allergy status to other drugs, medicaments and biological substances; Z79.899 Other long term (current) drug therapy
CPT/HCPCS: 71045; 80053; 85025; 93005; 93010; 96374; 96375; 99285-25; G0378; J3010